=== PATIENT | male | born 1960 | race Two or more races ===

== ENCOUNTER 2016-08-28 09:34 | Emergency (ER) | payer BC, OTHER ==
[~2016-08-28] VITALS: Ht 177.8 cm; Wt 81.6 kg
[~2016-08-28 09:34] MED LIST: ASPI-605 PO; SIMV10TA6 PO
[2016-08-28 09:54] VITALS: BP 114/79
== END 2016-08-28 09:56 | disposition home or self-care (01) ==
LOC: ER 09:36
DX: M54.42 Lumbago with sciatica, left side (principal); G70.00 Myasthenia gravis without (acute) exacerbation; F17.200 Nicotine dependence, unspecified, uncomplicated; Z79.82 Long term (current) use of aspirin
CPT/HCPCS: 99283; A4606; Z7502; Z7610

== ENCOUNTER 2017-11-12 16:52 | Emergency (ER) | payer BC, OTHER ==
[~2017-11-12] VITALS: Ht 180.3 cm; Wt 75.7 kg
[2017-11-12] MEDS ORDERED: IBUPROFEN 600 MG TABLET PO ONE ×2 (18:00→18:04)
--- NOTE | 2017-11-12 18:09 | NUR ---
Patient discharged to home in stable condition. Written and verbal after care instructions given. Patient verbalizes understanding of instruction AND RX. PT'S IS DRIVING PT HOME. VSS. NAD NOTED.
[2017-11-12 18:11] VITALS: BP 116/65
== END 2017-11-12 18:12 | disposition home or self-care (01) ==
LOC: ER 16:54
DX: M54.42 Lumbago with sciatica, left side (principal); G89.29 Other chronic pain; M51.26 Other intervertebral disc displacement, lumbar region; G70.00 Myasthenia gravis without (acute) exacerbation; F17.200 Nicotine dependence, unspecified, uncomplicated; Z79.82 Long term (current) use of aspirin
CPT/HCPCS: A4606; Z7610